=== PATIENT | female | born 1970 | race Caucasian/White ===

== ENCOUNTER 2018-03-27 14:09 | Emergency (ER) | payer OTHER ==
[~2018-03-27] VITALS: Ht 165.1 cm; Wt 97.5 kg
[~2018-03-27 14:09] MED LIST: AMBIEN5 MG PO; BACTRIM DS TAB1 EACH PO; CALCIUM CARBON500 MG PO; CEFUROXIME250 MG PO; CITALOPRAM HBR20 MG PO; CYPROHEPTADINE H4 MG PO; DAILY VITAMIN1 EAC3 PO; FIBER500 MG PO; MAGNESIUM OXID400 MG PO; NAPROXEN250 MG PO; OMEPRAZOLE40 MG PO; PREDNISONE1 MG PO
--- OUTSIDE RECORDS SUMMARY | 2018-03-27 14:12 | XMS REPORT | Continuity of Care Document ---
Author Author [facility] Interface Address Unknown Phone Unavailable Problems Problem Status Onset Date Classification Date Reported Comments Source N20.0 Active 01/08/2016 [facility] UNK Active 11/27/2015 [facility] KUB Active 11/13/2015 [facility] Renal stone Active Problem 02/14/2016 [facility] [place] XRAY Active [facility] Medications Medication Details Route Status Patient Instructions Ordering Provider Order Date Source esmolol 10 mg, Route: IVP, Q5Min, Dosing Weight 91.165, kg, PRN Other -See Comment, Start date: 12/12/15 8:45:00 CDT, Duration: 5 doses or times, Stop date: Limited # of times Inactive 12/12/2015 [facility] Hydralazine 10 mg, Route: IVP, Q20Min, Dosing Weight 91.165, kg, PRN Elevated BP, Start date: 12/12/15 8:45:00 CDT, Duration: 2 doses or times, Stop date: Limited # of times Inactive 12/12/2015 [facility] Naloxone 0.4 mg, Route: IVP, Q2MIN, Dosing Weight 91.165, kg, PRN Narcotic Reversal, Start date: 12/12/15 8:45:00 CDT, Duration: 8 doses or times, Stop date: Limited # of times Inactive 12/12/2015 [facility] Flumazenil 0.2 mg, Route: IVP, PRN, Dosing Weight 91.165, kg, PRN Benzodiazepine Reversal, Initial dose, Start date: 12/12/15 8:45:00 CDT, Duration: 30 day, Stop date: 01/11/16 8:44:00 CDT Inactive 12/12/2015 [facility] Diphenhydramine 12.5 mg, Route: IVP, Drug form: INJ, Q6H, Dosing Weight 91.165, kg, PRN Itching, Start date: 12/12/15 8:45:00 CDT, Duration: 30 day, Stop date: 01/11/16 8:44:00 CDT Inactive 12/12/2015 [facility] Oxycodone 10 mg, Route: PO, Drug form: TAB, Q4H, Dosing Weight 91.165, kg, PRN Pain Score 7-10, Start date: 12/12/15 8:45:00 CDT, Duration: 30 day, Stop date: 01/11/16 8:44:00 CDT Inactive 12/12/2015 [facility] Fentanyl 25 microgram, Route: IVP, Q5Min, Dosing Weight 91.165, kg, PRN Pain Score 4-6, Start date: 12/12/15 8:45:00 CDT, Duration: 4 doses or times, Stop date: Limited # of times Inactive 12/12/2015 [facility] Hydromorphone 0.5 mg, Route: IVP, Q5Min, Dosing Weight 91.165, kg, PRN Pain Score 7-10, Start date: 12/12/15 8:45:00 CDT, Duration: 4 doses or times, Stop date: Limited # of times Inactive 12/12/2015 [facility] Promethazine 6.25 mg, Route: IVPB, ONCE, Dosing Weight 91.165, kg, PRN Nausea & Vomiting, Start date: 12/12/15 8:45:00 CDT Inactive 12/12/2015 [facility] Ondansetron 4 mg, Route: IVP, ONCE, Dosing Weight 91.165, kg, PRN Nausea & Vomiting, Start date: 12/12/15 8:45:00 CDT Inactive 12/12/2015 [facility] Meperidine 12.5 mg, Route: IVP, Q30Min, Dosing Weight 91.165, kg, PRN Other -See Comment, For shivering, Start date: 12/12/15 8:45:00 CDT, Duration: 2 doses or times, Stop date: Limited # of times Inactive 12/12/2015 [facility] Acetaminophen 1,000 mg, Route: IVPB, Drug form: INJ, ONCE, Dosing Weight 91.165, kg, PRN Pain Score 1-3, Start date: 12/12/15 8:45:00 CDT, Duration: 1 doses or times, Stop date: Limited # of times Inactive 12/12/2015 [facility] Labetalol 10 mg, Route: IVP, Q5Min, Dosing Weight 91.165, kg, PRN Elevated BP, Start date: 12/12/15 8:45:00 CDT, Duration: 5 doses or times, Stop date: Limited # of times Inactive 12/12/2015 [facility] Sodium Chloride 0.154 MEQ/ML Injectable Solution 500 mL, Rate: 125 ml/hr, Infuse over: 4 hr, Route: IV, Dosing Weight 91.165 kg, Total Volume: 500, Start date: 12/12/15 8:45:00 CDT, Duration: 30 day, Stop date: 01/11/16 8:44:00 CDT Inactive 12/12/2015 [facility] Calcium Chloride 0.0014 MEQ/ML / Potassium Chloride 0.004 MEQ/ML / Sodium Chloride 0.103 MEQ/ML / Sodium Lactate 0.028 MEQ/ML Injectable Solution 1,000 mL, Rate: 125 ml/hr, Infuse over: 8 hr, Route: IV, Dosing Weight 91.165 kg, Total Volume: 1,000, Start date: 12/12/15 8:45:00 CDT, Duration: 30 day, Stop date: 01/11/16 8:44:00 CDT Inactive 12/12/2015 [facility] propofol (ANES) Route: IV, Drug form: INJ, ONCE, Stop date: 12/12/15 8:35:00 CDT Inactive 12/12/2015 [facility] fentaNYL (ANES) Route: IV, Drug form: INJ, ONCE, Stop date: 12/12/15 8:35:00 CDT Inactive 12/12/2015 [facility] lidocaine (ANES) Route: IV, Drug form: INJ, ONCE, Stop date: 12/12/15 8:35:00 CDT Inactive 12/12/2015 [facility] dexamethasone (ANES) Route: IV, Drug form: INJ, ONCE, Stop date: 12/12/15 8:35:00 CDT Inactive 12/12/2015 [facility] ondansetron (ANES) Route: IV, Drug form: INJ, ONCE, Stop date: 12/12/15 8:35:00 CDT Inactive 12/12/2015 [facility] midazolam (ANES) Route: IV, Drug form: SOLN, ONCE, Stop date: 12/12/15 8:30:00 CDT Inactive 12/12/2015 [facility] ciprofloxacin (ANES) Route: IV, Drug form: INJ, ONCE, Stop date: 12/12/15 8:30:00 CDT Inactive 12/12/2015 [facility] LR 1000 mL INJ (ANES) Route: IV, Total Volume: 1,000, Start date: 12/12/15 7:45:00 CDT, Stop date: 12/12/15 8:45:00 CDT Inactive 12/12/2015 [facility] Ciprofloxacin 400 mg, 200 mL, Route: IVPB, Drug form: INJ, ONCE, Dosing Weight 91.165, kg, Start date: 12/12/15 7:00:00 CDT, Stop date: 12/12/15 7:00:00 CDTNotes: Do not refrigerate Inactive 12/12/2015 [facility] Albuterol 0.833 MG/ML / Ipratropium [place] 0.167 MG/ML Inhalant Solution 3 mL, Route: NEB, Dosing Weight 91.165, kg, ONCE, STAT, Start date: 12/12/15 6:57:00 CDT, Stop date: 12/12/15 6:57:00 CDT Inactive 12/12/2015 [facility] Sodium Chloride 0.154 MEQ/ML Injectable Solution 500 mL, Rate: 25 ml/hr, Infuse over: 20 hr, Route: IV, Dosing Weight 91.165 kg, Total Volume: 500, Start date: 12/12/15 6:57:00 CDT, Duration: 30 day, Stop date: 01/11/16 6:56:00 CDT Inactive 12/12/2015 [facility] Calcium Chloride 0.0014 MEQ/ML / Potassium Chloride 0.004 MEQ/ML / Sodium Chloride 0.103 MEQ/ML / Sodium Lactate 0.028 MEQ/ML Injectable Solution 1,000 mL, Rate: 25 ml/hr, Infuse over: 40 hr, Route: IV, Dosing Weight 91.165 kg, Total Volume: 1,000, Start date: 12/12/15 6:57:00 CDT, Duration: 30 day, Stop date: 01/11/16 6:56:00 CDT Inactive 12/12/2015 [facility] linaclotide 0.145 MG Oral Capsule [Linzess] 145 microgram=1 cap, PO, Daily, 30 minutes prior to the first meal of the day, # 30 cap, 0 Refill(s) Active 12/04/2015 [facility] Vitamin D3 1000 intl units oral tablet, chewable 1,000 IntlUnit=1 tab, CHEW, Daily, 0 Refill(s) Active 12/04/2015 [facility] Zolpidem tartrate 10 MG Oral Tablet [Ambien] 10 mg=1 tab, PO, Bedtime, PRN for sleep, 0 Refill(s) Active 12/04/2015 [facility] Caltrate 600 with Iron and Vitamin D 1 tab, PO, Daily, 0 Refill(s) Active 12/04/2015 [facility] One-A-Day Women oral tablet 1 tab, PO, Daily, # 30 tab, 0 Refill(s) Active 12/04/2015 [facility] Allergies, Adverse Reactions, Alerts Substance Category Reaction Severity Reaction type Status Date Reported Comments Source Immunizations Immunization Date Given Site Status Last Updated Comments Source Results Order Name Results Value Reference Range Date Interpretation Comments Source Spine thoracic 3 views DX Spine thoracic 3 views DX EXAM: CERVICAL SPINE 3 VIEWS EXAM: THORACIC SPINE 2 VIEWS EXAM: LUMBAR SPINE 2 VIEWS DATE: 02/11/2016 10:35 AM CDT INDICATION: M79.1 Myalgia COMPARISON: None TECHNIQUE: AP, open-mouth odontoid and lateral radiographs of the cervical spine show from the skull base through T1. AP and lateral views of the thoracic and lumbar spine. DISCUSSION: Satisfactory alignment of the cervical spine. Cervical vertebral body and disc heights are maintained. Small vertebral body osteophytes at C5-C6. Cervical prevertebral soft tissue contours are normal. There is satisfactory alignment of the thoracic and lumbar spine. Thoracic and lumbar vertebral body and disc heights are maintained. Tiny anterior vertebral body osteophytes throughout the lower thoracic spine. Mild facet arthropathy lower lumbar spine. Mild L4-L5 and moderate L5-S1 osseous neuroforaminal narrowing. Mediastinal contours are normal. Cholecystectomy clips are present. IMPRESSION: 1. Minimal degenerative disc disease at C5-C6. 2. Minimal degenerative disc disease of the lower thoracic spine. 3. Mild facet arthropathy of the lower lumbar spine. 4. Mild L4-L5 and moderate L5-S1 osseous neuroforaminal narrowing. 02/11/2016 - - Read by: Taco Garces MD Dictated Date/time: 02/11/16 11:26 Electronically Signed by: Taco Garces MD 02/11/16 11:[address] [facility] Spine lumbar 2 or 3 views DX Spine lumbar 2 or 3 views DX EXAM: CERVICAL SPINE 3 VIEWS EXAM: THORACIC SPINE 2 VIEWS EXAM: LUMBAR SPINE 2 VIEWS DATE: 02/11/2016 10:35 AM CDT INDICATION: M79.1 Myalgia COMPARISON: None TECHNIQUE: AP, open-mouth odontoid and lateral radiographs of the cervical spine show from the skull base through T1. AP and lateral views of the thoracic and lumbar spine. DISCUSSION: Satisfactory alignment of the cervical spine. Cervical vertebral body and disc heights are maintained. Small vertebral body osteophytes at C5-C6. Cervical prevertebral soft tissue contours are normal. There is satisfactory alignment of the thoracic and lumbar spine. Thoracic and lumbar vertebral body and disc heights are maintained. Tiny anterior vertebral body osteophytes throughout the lower thoracic spine. Mild facet arthropathy lower lumbar spine. Mild L4-L5 and moderate L5-S1 osseous neuroforaminal narrowing. Mediastinal contours are normal. Cholecystectomy clips are present. IMPRESSION: 1. Minimal degenerative disc disease at C5-C6. 2. Minimal degenerative disc disease of the lower thoracic spine. 3. Mild facet arthropathy of the lower lumbar spine. 4. Mild L4-L5 and moderate L5-S1 osseous neuroforaminal narrowing. 02/11/2016 - - Read by: Taco Garces MD Dictated Date/time: 02/11/16 11:26 Electronically Signed by: Taco Garces MD 02/11/16 11:[address] [facility] Spine cervical 2 or 3 view DX Spine cervical 2 or 3 view DX EXAM: CERVICAL SPINE 3 VIEWS EXAM: THORACIC SPINE 2 VIEWS EXAM: LUMBAR SPINE 2 VIEWS DATE: 02/11/2016 10:35 AM CDT INDICATION: M79.1 Myalgia COMPARISON: None TECHNIQUE: AP, open-mouth odontoid and lateral radiographs of the cervical spine show from the skull base through T1. AP and lateral views of the thoracic and lumbar spine. DISCUSSION: Satisfactory alignment of the cervical spine. Cervical vertebral body and disc heights are maintained. Small vertebral body osteophytes at C5-C6. Cervical prevertebral soft tissue contours are normal. There is satisfactory alignment of the thoracic and lumbar spine. Thoracic and lumbar vertebral body and disc heights are maintained. Tiny anterior vertebral body osteophytes throughout the lower thoracic spine. Mild facet arthropathy lower lumbar spine. Mild L4-L5 and moderate L5-S1 osseous neuroforaminal narrowing. Mediastinal contours are normal. Cholecystectomy clips are present. IMPRESSION: 1. Minimal degenerative disc disease at C5-C6. 2. Minimal degenerative disc disease of the lower thoracic spine. 3. Mild facet arthropathy of the lower lumbar spine. 4. Mild L4-L5 and moderate L5-S1 osseous neuroforaminal narrowing. 02/11/2016 - - Read by: Taco Garces MD Dictated Date/time: 02/11/16 11:26 Electronically Signed by: Taco Garces MD 02/11/16 11:[address] [facility] Abdomen AP DX Abdomen AP DX Abdomen AP DX CLINICAL INDICATION: n20.0 renal stone COMPARISON: 12/12/2015 FINDINGS: Support Lines/Tubes: none Bowel gas pattern is unremarkable. No contour deforming masses are visualized. No definite tract calculi are evident. Rounded calcification in the right mid to lower pelvis likely represents a phlebolith. No significant bony abnormality is noted. Surgical clips in the right upper abdomen suggest previous cholecystectomy. IMPRESSION: No acute abnormality is noted. SL: [id number] 01/08/2016 - - Read by: Shukri Angel MD Dictated Date/time: 01/08/16 17:24 Electronically Signed by: Shukri Angel MD 01/08/16 17:26 FINAL REPORT [facility] URINE CHEM U Preg Negative (12/12/15 6:13 AM) Negative 12/12/2015 [facility] Abdomen AP DX Abdomen AP DX Clinical Indication: Flank Pain; Comparison: None FINDINGS: The AP supine view of the abdomen shows a non-obstructive bowel gas pattern. There is no abnormal dilatation of bowel loops. There is no pneumatosis or mass effect. Round calcification in the right hemipelvis. A 4 mm calcification overlies the lower pole of the right kidney. Several 2-4 mm calcifications overlie the expected course of the right mid and distal ureter, at the L4 and L5 levels. There are no clinically significant osseous abnormalities noted. Cholecystectomy clips right upper quadrant and surgical suture medial left upper quadrant. IMPRESSION: A 4 mm calcification overlies the lower pole of the right kidney, and a round 3 mm calcification seen in the right hemipelvis, which could be a distal ureteral calculus or a phlebolith. Several 2-4 mm calcifications overlie the expected course of the right mid and distal ureter, at the L4 and L5 levels SL: [id number] 12/12/2015 - - Read by: Brian Argueta MD Dictated Date/time: 12/12/15 08:10 Electronically Signed by: Brian Argueta MD 12/12/15 08:13 FINAL REPORT [facility] HEMATOLOGY PT 13.8 s 12.0 - 14.7 12/04/2015 [facility] HEMATOLOGY PTT 31.9 s 22.9 - 35.8 12/04/2015 [facility] HEMATOLOGY INR 1.03 0.85 - 1.17 12/04/2015 [facility] URINE AND STOOL UA Color Ltyellow 12/04/2015 [facility] URINE AND STOOL UA Urobilinogen <=1.0 mg/dL 0.1 - 1.0 12/04/2015 [facility] URINE AND STOOL UA RBC 1 /HPF 0 - 2 12/04/2015 [facility] URINE AND STOOL UA WBC 1 /HPF 0 - 5 12/04/2015 [facility] URINE AND STOOL UA Nitrite Negative (12/04/15 11:16 AM) Negative 12/04/2015 [facility] URINE AND STOOL UA Leuk Est Negative (12/04/15 11:16 AM) Negative 12/04/2015 [facility] URINE AND STOOL UA Sq Epi Occasional /LPF Few /LPF 12/04/2015 [facility] URINE AND STOOL UA Bili Negative *NA* (12/04/15 11:16 AM) Negative 12/04/2015 [facility] URINE AND STOOL UA Ketones Negative mg/dL Negative mg/dL 12/04/2015 [facility] URINE AND STOOL UA Blood Small *ABN* (12/04/15 11:16 AM) Negative 12/04/2015 [facility] URINE AND STOOL UA pH 8.0 5.0 - 8.0 12/04/2015 [facility] URINE AND STOOL UA Protein Negative mg/dL Negative mg/dL 12/04/2015 [facility] URINE AND STOOL UA Glucose Negative mg/dL Negative mg/dL 12/04/2015 [facility] URINE AND STOOL UA Spec Grav 1.012 <=1.030 12/04/2015 [facility] URINE AND STOOL UA Turbidity Clear (12/04/15 11:16 AM) Clear 12/04/2015 [facility] Abdomen AP DX Abdomen AP DX Study: Abdomen, 2 views Clinical Indication: N20.0 Calculus of kidney. History of right renal stones, right-sided abdominal pain, hematuria Comparison: CT of the abdomen from 05/24/2008. FINDINGS: Multiple views of the abdomen show a 3 mm calcification projecting over the inferior pole of the right renal shadow, suspicious for stone. Bowel gas pattern is nonobstructive in appearance. Surgical clips in the right upper quadrant are seen. Osseous structures are unremarkable. IMPRESSION: Right nephrolithiasis. SL: [id number] 11/27/2015 - - Read by: Michel Wynn MD Dictated Date/time: 11/27/15 15:46 Electronically Signed by: Michel Wynn MD 11/27/15 15:48 FINAL REPORT [facility] Vital Signs Vital Sign Value Date Comments Source Systolic (mm Hg) 109 12/12/2015 [facility] Diastolic (mm Hg) 68 12/12/2015 [facility] Systolic (mm Hg) 115 12/12/2015 [facility] Diastolic (mm Hg) 73 12/12/2015 [facility] Systolic (mm Hg) 105 12/12/2015 [facility] Diastolic (mm Hg) 45 12/12/2015 [facility] Respitory Rate 13 12/12/2015 [facility] Respitory Rate 14 12/12/2015 [facility] Respitory Rate 16 12/12/2015 [facility] Heart Rate 91 12/04/2015 [facility] Temperature Oral (F) 97.9 F 12/04/2015 [facility] Height 165.1 cm 12/04/2015 [facility] Weight 91.165 12/04/2015 [facility] BMI Calculated 33.45 12/04/2015 [facility] Encounters Location Location Details Encounter Type Encounter Number Reason For Visit Attending Provider ADM Date DC Date Status Source [facility] Outpatient [id number] [facility] Jordana 11/27/2015 11/28/2015 [facility] Day Surgery [id number] [facility] 12/12/2015 12/12/2015 [facility] Outpatient [id number] [facility] 01/08/2016 01/09/2016 [facility] [place] [facility] [id number] Gordon Ryan 02/11/2016 02/12/2016 [facility] Procedures Procedure Code Date Perfomer Comments Source Sleeve resection of stomach [id number] 09/30/2012 [facility] Sleeve resection of stomach [id number] 09/30/2012 [facility] Breast reduction, bilateral [id number] 12/31/1998 [facility] Breast reduction, bilateral [id number] 12/31/1998 [facility] section [id number] 06/02/1998 [facility] section [id number] 06/02/1998 [facility] section [id number] 01/30/1993 [facility] section [id number] 01/30/1993 [facility]
--- OUTSIDE RECORDS SUMMARY | 2018-03-27 14:12 | XMS REPORT | Summary of Care ---
Author Author [facility] Organization [facility] Address Unknown Phone Unavailable Encounter [facility](FIN) [id number] Date(s): 01/08/16 - 01/08/16 [facility] [address] [place] [address]- Discharge Disposition: Home or Self Care Attending Physician: Jim Silveira MD Vital Signs No data available for this section Problem List Condition Effective Dates Status Health Status Informant Renal Active stone(Confirmed) Allergies, Adverse Reactions, Alerts Substance Reaction Severity Status NKDA Active Medications No data available for this section Results No data available for this section Immunizations No data available for this section Procedures Procedure Date Related Diagnosis Body Site Sleeve resection of stomach 09/2012 Breast reduction, bilateral 12/1998 section 06/1998 section 01/1993 Social History Social History Type Response Alcohol Current, Type Liquor. Frequency: 1-2 times per year. Smoking Status Never smoker; Type: Cigarettes; Exposure to Tobacco Smoke None; Cigarette Smoking Last 365 Days No; Reg Smoking Cessation Counseling No Assessment and Plan No data available for this section
--- OUTSIDE RECORDS SUMMARY | 2018-03-27 14:12 | XMS REPORT | Summary of Care ---
Author Author [facility] Organization [facility] Address Unknown Phone Unavailable Encounter JOHANA Tolbert(SEBAS) [id number] Date(s): 12/12/15 - 12/12/15 [facility] [address] [place] [address]- [phone] Discharge Disposition: Home or Self Care Attending Physician: Jim Silveira MD Referring Physician: Jim Silveira MD Vital Signs 1 2 3 Most recent to oldest [Reference Range]: 165.1 cm (12/04/15 10:42 AM) Height 97.9 DegF (12/04/15 10:59 AM) Temperature Oral [96.4-99.1 DegF] 109/68 mmHg (12/12/15 10:30 AM) 115/73 mmHg (12/12/15 9:20 AM) 105/45 mmHg (12/12/15 9:15 AM) Blood Pressure [90-140/60-90 mmHg] 13 BRMIN *LOW* (12/12/15 9:15 AM) 14 BRMIN (12/12/15 9:00 AM) 16 BRMIN (12/12/15 8:45 AM) Respiratory Rate [14-20 BRMIN] 91 bpm (12/04/15 10:59 AM) Peripheral Pulse Rate [60-100 bpm] 91.165 kg (12/04/15 10:42 AM) Weight 33.45 m2 (12/04/15 10:42 AM) Body Mass Index Problem List Condition Effective Dates Status Health Status Informant Renal Active stone(Confirmed) Allergies, Adverse Reactions, Alerts Substance Reaction Severity Status NKDA Active Medications albuterol-ipratropium 2.5-0.5 mg inhalation solution 3 mL, Route: NEB, Dosing Weight 91.165, kg, ONCE, STAT, Start date: 12/12/15 6:5 7:00 CDT, Stop date: 12/12/15 6:57:00 CDT Start Date: 12/12/15 Stop Date: 12/12/15 Status: Discontinued Ambien 10 mg oral tablet 10 mg=1 tab, PO, Bedtime, PRN for sleep, 0 Refill(s) Start Date: 12/04/15 Stop Date: 12/18/15 Status: Ordered ANES acetaminophen 1,000 mg, Route: IVPB, Drug form: INJ, ONCE, Dosing Weight 91.165, kg, PRN Pain Score 1-3, Start date: 12/12/15 8:45:00 CDT, Duration: 1 doses or times, Stop da te: Limited # of times Start Date: 12/12/15 Stop Date: 12/12/15 Status: Discontinued ANES diphenhydrAMINE 12.5 mg, Route: IVP, Drug form: INJ, Q6H, Dosing Weight 91.165, kg, PRN Itching, Start date: 12/12/15 8:45:00 CDT, Duration: 30 day, Stop date: 01/11/16 8:44:00 CDT Start Date: 12/12/15 Stop Date: 12/12/15 Status: Discontinued ANES esmolol 10 mg, Route: IVP, Q5Min, Dosing Weight 91.165, kg, PRN Other -See Comment, Star t date: 12/12/15 8:45:00 CDT, Duration: 5 doses or times, Stop date: Limited # o f times Start Date: 12/12/15 Stop Date: 12/12/15 Status: Discontinued ANES fentaNYL 25 microgram, Route: IVP, Q5Min, Dosing Weight 91.165, kg, PRN Pain Score 4-6, S tart date: 12/12/15 8:45:00 CDT, Duration: 4 doses or times, Stop date: Limited # of times Start Date: 12/12/15 Stop Date: 12/12/15 Status: Discontinued ANES fentaNYL 50 microgram, Route: IVP, Q5Min, Dosing Weight 91.165, kg, PRN Pain Score 7-10, Start date: 12/12/15 8:45:00 CDT, Duration: 2 doses or times, Stop date: Limited # of times Start Date: 12/12/15 Stop Date: 12/12/15 Status: Discontinued ANES flumazenil 0.2 mg, Route: IVP, PRN, Dosing Weight 91.165, kg, PRN Benzodiazepine Reversal, Initial dose, Start date: 12/12/15 8:45:00 CDT, Duration: 30 day, Stop date: 03/17 8:44:00 CDT Start Date: 12/12/15 Stop Date: 12/12/15 Status: Discontinued ANES hydrALAZINE 10 mg, Route: IVP, Q20Min, Dosing Weight 91.165, kg, PRN Elevated BP, Start date : 12/12/15 8:45:00 CDT, Duration: 2 doses or times, Stop date: Limited # of time s Start Date: 12/12/15 Stop Date: 12/12/15 Status: Discontinued ANES HYDROmorphone 0.5 mg, Route: IVP, Q5Min, Dosing Weight 91.165, kg, PRN Pain Score 7-10, Start date: 12/12/15 8:45:00 CDT, Duration: 4 doses or times, Stop date: Limited # of times Start Date: 12/12/15 Stop Date: 12/12/15 Status: Discontinued ANES labetalol 10 mg, Route: IVP, Q5Min, Dosing Weight 91.165, kg, PRN Elevated BP, Start date: 12/12/15 8:45:00 CDT, Duration: 5 doses or times, Stop date: Limited # of times Start Date: 12/12/15 Stop Date: 12/12/15 Status: Discontinued ANES meperidine 12.5 mg, Route: IVP, Q30Min, Dosing Weight 91.165, kg, PRN Other -See Comment, F or shivering, Start date: 12/12/15 8:45:00 CDT, Duration: 2 doses or times, Stop date: Limited # of times Start Date: 12/12/15 Stop Date: 12/12/15 Status: Discontinued ANES naloxone 0.4 mg, Route: IVP, Q2MIN, Dosing Weight 91.165, kg, PRN Narcotic Reversal, Star t date: 12/12/15 8:45:00 CDT, Duration: 8 doses or times, Stop date: Limited # o f times Start Date: 12/12/15 Stop Date: 12/12/15 Status: Discontinued ANES ondansetron 4 mg, Route: IVP, ONCE, Dosing Weight 91.165, kg, PRN Nausea & Vomiting, Start date: 12/12/15 8:45:00 CDT Start Date: 12/12/15 Stop Date: 12/12/15 Status: Completed ANES oxyCODONE 10 mg, Route: PO, Drug form: TAB, Q4H, Dosing Weight 91.165, kg, PRN Pain Score 7-10, Start date: 12/12/15 8:45:00 CDT, Duration: 30 day, Stop date: 01/11/16 8: 44:00 CDT Start Date: 12/12/15 Stop Date: 12/12/15 Status: Discontinued ANES oxyCODONE 5 mg, Route: PO, Drug form: TAB, Q4H, Dosing Weight 91.165, kg, PRN Pain Score 4 -6, Start date: 12/12/15 8:45:00 CDT, Duration: 30 day, Stop date: 01/11/16 8:44 :00 CDT Start Date: 12/12/15 Stop Date: 12/12/15 Status: Discontinued ANES promethazine 6.25 mg, Route: IVPB, ONCE, Dosing Weight 91.165, kg, PRN Nausea & Vomiting, Start date: 12/12/15 8:45:00 CDT Start Date: 12/12/15 Stop Date: 12/12/15 Status: Completed Caltrate 600 with Iron and Vitamin D 1 tab, PO, Daily, 0 Refill(s) Start Date: 12/04/15 Status: Ordered ciprofloxacin 400 mg, 200 mL, Route: IVPB, Drug form: INJ, ONCE, Dosing Weight 91.165, kg, Sta rt date: 12/12/15 7:00:00 CDT, Stop date: 12/12/15 7:00:00 CDT Notes: Do not refrigerate Start Date: 12/12/15 Stop Date: 12/12/15 Status: Ordered ciprofloxacin (ANES) Route: IV, Drug form: INJ, ONCE, Stop date: 12/12/15 8:30:00 CDT Start Date: 12/12/15 Stop Date: 12/12/15 Status: Completed dexamethasone (ANES) Route: IV, Drug form: INJ, ONCE, Stop date: 12/12/15 8:35:00 CDT Start Date: 12/12/15 Stop Date: 12/12/15 Status: Completed fentaNYL (ANES) Route: IV, Drug form: INJ, ONCE, Stop date: 12/12/15 8:35:00 CDT Start Date: 12/12/15 Stop Date: 12/12/15 Status: Completed Lactated Ringers Injection IV 1000 mL 1,000 mL, Rate: 25 ml/hr, Infuse over: 40 hr, Route: IV, Dosing Weight 91.165 kg , Total Volume: 1,000, Start date: 12/12/15 6:57:00 CDT, Duration: 30 day, Stop date: 01/11/16 6:56:00 CDT Start Date: 12/12/15 Stop Date: 12/12/15 Status: Discontinued Lactated Ringers Injection IV 1000 mL 1,000 mL, Rate: 125 ml/hr, Infuse over: 8 hr, Route: IV, Dosing Weight 91.165 kg , Total Volume: 1,000, Start date: 12/12/15 8:45:00 CDT, Duration: 30 day, Stop date: 01/11/16 8:44:00 CDT Start Date: 12/12/15 Stop Date: 12/12/15 Status: Discontinued lidocaine (ANES) Route: IV, Drug form: INJ, ONCE, Stop date: 12/12/15 8:35:00 CDT Start Date: 12/12/15 Stop Date: 12/12/15 Status: Completed Linzess 145 mcg oral capsule 145 microgram=1 cap, PO, Daily, 30 minutes prior to the first meal of the day, # 30 cap, 0 Refill(s) Start Date: 12/04/15 Status: Ordered LR 1000 mL INJ (ANES) Route: IV, Total Volume: 1,000, Start date: 12/12/15 7:45:00 CDT, Stop date: 04/16 8:45:00 CDT Start Date: 12/12/15 Stop Date: 12/12/15 Status: Completed midazolam (ANES) Route: IV, Drug form: SOLN, ONCE, Stop date: 12/12/15 8:30:00 CDT Start Date: 12/12/15 Stop Date: 12/12/15 Status: Completed ondansetron (ANES) Route: IV, Drug form: INJ, ONCE, Stop date: 12/12/15 8:35:00 CDT Start Date: 12/12/15 Stop Date: 12/12/15 Status: Completed One-A-Day Women oral tablet 1 tab, PO, Daily, # 30 tab, 0 Refill(s) Start Date: 12/04/15 Status: Ordered propofol (ANES) Route: IV, Drug form: INJ, ONCE, Stop date: 12/12/15 8:35:00 CDT Start Date: 12/12/15 Stop Date: 12/12/15 Status: Completed Sodium Chloride 0.9% IV 500 mL 500 mL, Rate: 25 ml/hr, Infuse over: 20 hr, Route: IV, Dosing Weight 91.165 kg, Total Volume: 500, Start date: 12/12/15 6:57:00 CDT, Duration: 30 day, Stop date : 01/11/16 6:56:00 CDT Start Date: 12/12/15 Stop Date: 12/12/15 Status: Discontinued Sodium Chloride 0.9% IV 500 mL 500 mL, Rate: 125 ml/hr, Infuse over: 4 hr, Route: IV, Dosing Weight 91.165 kg, Total Volume: 500, Start date: 12/12/15 8:45:00 CDT, Duration: 30 day, Stop date : 01/11/16 8:44:00 CDT Start Date: 12/12/15 Stop Date: 12/12/15 Status: Discontinued Vitamin D3 1000 intl units oral tablet, chewable 1,000 IntlUnit=1 tab, CHEW, Daily, 0 Refill(s) Start Date: 12/04/15 Status: Ordered Results URINE CHEM Most recent to 1 oldest [Reference Range]: U Preg [Negative] Negative (12/12/15 6:13 AM) URINE AND STOOL Most recent to 1 oldest [Reference Range]: UA Turbidity [Clear] Clear (12/04/15 11:16 AM) UA Color Ltyellow *NA* (12/04/15 11:16 AM) UA pH [5.0-8.0] 8.0 (12/04/15 11:16 AM) UA Spec Grav 1.012 [<=1.030] (12/04/15 11:16 AM) UA Glucose [Negative Negative mg/dL mg/dL] *NA* (12/04/15 11:16 AM) UA Blood [Negative] Small *ABN* (12/04/15 11:16 AM) UA Ketones [Negative Negative mg/dL mg/dL] *NA* (12/04/15 11:16 AM) UA Protein [Negative Negative mg/dL mg/dL] (12/04/15 1116 AM) UA Urobilinogen <=1.0 mg/dL [0.1-1.0 mg/dL] *NA* (12/04/15 11:16 AM) UA Bili [Negative] Negative *NA* (12/04/15 11:16 AM) UA Leuk Est Negative [Negative] (12/04/15 11:16 AM) UA Nitrite Negative [Negative] (12/04/15 11:16 AM) UA WBC [0-5 /HPF] 1 /HPF (12/04/15 11:16 AM) UA RBC [0-2 /HPF] 1 /HPF (12/04/15 11:16 AM) UA Sq Epi [Few /LPF] Occasional /LPF *NA* (12/04/15 11:16 AM) HEMATOLOGY Most recent to 1 oldest [Reference Range]: PT [12.0-14.7 13.8 seconds seconds] (12/04/15 11:16 AM) INR [0.85-1.17] 1.03 (12/04/15 11:16 AM) PTT [22.9-35.8 31.9 seconds seconds] (12/04/15 11:16 AM) Immunizations No data available for this section [...]
--- OUTSIDE RECORDS SUMMARY | 2018-03-27 14:12 | XMS REPORT | Summary of Care ---
Author Author [facility] Organization [facility] Address Unknown Phone Unavailable Encounter HQ Leifr_oneyda(SEBAS) [id number] Date(s): 11/27/15 - 11/27/15 [facility] [address] [place] [address]- Discharge Disposition: Home or Self Care Attending Physician: Jim Silveira MD Vital Signs No data available for this section Problem List No data available for this section Allergies, Adverse Reactions, Alerts No data available for this section Medications No data available for this section Results No data available for this section Immunizations No data available for this section Procedures No data available for this section Social History No data available for this section Assessment and Plan No data available for this section
--- OUTSIDE RECORDS SUMMARY | 2018-03-27 14:12 | XMS REPORT | Summary of Care ---
Author Author [facility] Outpatient [facility] Address Unknown Phone Unavailable Encounter HQ Didi(SEBAS) [id number] Date(s): 02/11/16 - 02/11/16 [facility] [address] [facility], [address] [place] [address] [phone] Discharge Disposition: Home or Self Care Attending Physician: Gordon Davis MD Vital Signs No data available for [...]
== END 2018-03-27 15:30 | disposition short-term general hospital (02) ==
LOC: ER 14:09
DX: R20.2 Paresthesia of skin (principal)